=== PATIENT | female | born 1935 | race Caucasian/White ===

== ENCOUNTER 2016-12-07 19:01 | Emergency (ER) | payer OTHER ==
[2016-12-07 22:12] LABS: HEMOGLOBIN 10.7 gm/dl (12.3-15.3); RED BLOOD COUNT 4.75 M/UL (4.00-5.10); WHITE BLOOD COUNT 10.6 K/UL (4.5-11.0)
[2016-12-07 22:28] LABS: BUN/CREATININE RATIO 33 (0-10)
== END 2016-12-08 04:50 | disposition home or self-care (01) ==
LOC: ER1 19:01
PROVIDERS: Emergency Medicine
DX: K62.5 Hemorrhage of anus and rectum (principal); N39.0 Urinary tract infection, site not specified; E07.9 Disorder of thyroid, unspecified; Z79.899 Other long term (current) drug therapy
CPT/HCPCS: 36415; 71010; 80053; 81001; 82272; 83605; 83690; 85025; 85610; 85730; 87040; 96361; 96365; 99284; J0696; J7050; Q9962

== ENCOUNTER 2022-02-20 11:05 | Outpatient (CLI) | payer MEDICARE ==
[~2022-02-20 11:05] MED LIST: B COMPLEX1 EACH PO; B-121000 MCG PO; CANDICIDAL CAP1 EACH PO; DOCUSATE SODIU100 MG PO; FERROUS SULFAT325 MG PO; FISH OIL 1,0001 EACH PO; LEVOTHYROXINE25 MCG PO; LOPRESSOR 25 MG25 MG PO; NORVASC10 MG PO; POLYETHYLENE GL17 GM PO; PROTONIX 40 MG40 M1 PO; VITAMIN D210 MCG PO; [UNRECOGNIZED DRUG - OTHER] PO
[2022-02-20] MEDS ORDERED: COLACE100 MG PO (13:16)
[2022-02-20] MEDS ORDERED: VITAMIN D350 MCG PO (13:18)
[2022-02-20] MEDS ORDERED: METOPROLOL TART25 MG PO (13:19)
[2022-02-20] MEDS ORDERED: ACETYL L-CARNI500 MG PO (13:21)
[2022-02-20] MEDS ORDERED: [UNRECOGNIZED DRUG - OTHER] PO (13:21)
[2022-02-20] MEDS ORDERED: [UNRECOGNIZED DRUG - OTHER] PO (13:22)
[2022-02-20] MEDS ORDERED: RESVERATROL100 MG PO (13:23)
[2022-02-20] MEDS ORDERED: GRAPE SEED50 MG PO (13:23)
[2022-02-20] MEDS ORDERED: [UNRECOGNIZED DRUG - OTHER] (13:24)
[2022-02-20] MEDS ORDERED: LECITHIN1200 MG PO (13:24)
== END 2022-02-20 16:30 | disposition home or self-care (01) ==
LOC: OPSV2 11:05
DX: Z01.818 Encounter for other preprocedural examination (principal); C18.9 Malignant neoplasm of colon, unspecified
CPT/HCPCS: 71046; 93005

== ENCOUNTER → 2022-02-22 | Outpatient (CLI) | payer MEDICARE ==
[~2022-02-22] MED LIST changes: +ACETYL L-CARNI500 MG PO; +COLACE100 MG PO; +GRAPE SEED50 MG PO; +LECITHIN1200 MG PO; +METOPROLOL TART25 MG PO; +RESVERATROL100 MG PO; +VITAMIN D350 MCG PO; +[UNRECOGNIZED DRUG - OTHER]; +[UNRECOGNIZED DRUG - OTHER] PO; +[UNRECOGNIZED DRUG - OTHER] PO
[2022-02-22 12:23] LABS: HEMOGLOBIN 10.6 gm/dl (12.3-15.3); RED BLOOD COUNT 4.51 M/UL (4.00-5.10); WHITE BLOOD COUNT 5.6 K/UL (4.5-11.0)
[2022-02-22 12:50] LABS: BUN/CREATININE RATIO 22 (0-10)
== END ==
LOC: LAB 11:01
PROVIDERS: Surgery
DX: Z01.812 Encounter for preprocedural laboratory examination (principal)
CPT/HCPCS: 36415; 80048; 85027; 86850; 86900; 86901